=== PATIENT | male | born 1965 | race Two or more races ===

== ENCOUNTER 2018-05-30 11:07 | Emergency (ER) | payer OTHER ==
[~2018-05-30] VITALS: Ht 177.8 cm; Wt 99.8 kg
[2018-05-30] MEDS ORDERED: LANTUS SOL100 UNIT/1 SUBCUTANEO (11:31)
== END 2018-05-30 13:29 | disposition home or self-care (01) ==
LOC: ER 11:07
DX: S61.223A Laceration with foreign body of left middle finger without damage to nail, initial encounter (principal); L03.012 Cellulitis of left finger; W45.8XXA Other foreign body or object entering through skin, initial encounter; Y93.89 Activity, other specified; Y92.89 Other specified places as the place of occurrence of the external cause; Y99.8 Other external cause status